=== PATIENT | male | born 1990 | race Caucasian/White ===

== ENCOUNTER 2019-07-14 17:39 | Emergency (ER) | payer MEDICAID, OTHER ==
[~2019-07-14] VITALS: Ht 175.3 cm; Wt 77.1 kg
[2019-07-14] MEDS ORDERED: IBUPROFEN 600 MG TABLET PO ONE (18:15)
[2019-07-14 18:17] LABS: POTASSIUM 4.6 mmol/L (3.5-5.1)
[2019-07-14 18:18] LABS: *BILIRUBIN,URIN 1+ (NEGATIVE); *BLOOD, URINE 3+ (NEGATIVE); *CLARITY,URINE CLOUDY (CLEAR); *COLOR,URINE DARK YELLOW (YELLOW); *KETONES,URINE TRACE (NEGATIVE); LEUKOCYTE ESTERASE ,URINE TRACE (NEGATIVE); NITRITE, URINE NEGATIVE (NEGATIVE); UGLUCOSE NEGATIVE (NEGATIVE)
[2019-07-14] MEDS ORDERED: IBUPROFEN 600 MG TABLET ONE (18:18)
[2019-07-14 18:43] LABS: RBC,URINE TNTC /HPF (0-3)
[2019-07-14 18:44] LABS: BACTERIA,URINE FEW /HPF (NONE SEEN); SQUAMOUS EPITHELIAL CELL,UR FEW /HPF (NONE SEEN)
--- NOTE | 2019-07-14 19:11 | NUR ---
Patient discharged to home in stable conditon. Written and verbal after care instructions given. Patient verbalizes understanding of instructions. Patient ambulated with stable gait.
[2019-07-14 19:12] VITALS: BP 118/79
== END 2019-07-14 19:13 | disposition home or self-care (01) ==
LOC: ER 17:43
DX: N20.0 Calculus of kidney (principal); F41.9 Anxiety disorder, unspecified; F41.0 Panic disorder [episodic paroxysmal anxiety]
CPT/HCPCS: 36415; 76770; 87086; A4663